=== PATIENT | female | born 1985 | race Caucasian/White ===

== ENCOUNTER 2020-06-03 16:14 | Outpatient (CLI) | payer OTHER, SELFPAY | END 2020-06-03 16:15 | disposition home or self-care (01) | LOC: ANHCOVIDVC 16:14 | PROVIDERS: PCP Family Medicine; Visit Provider Family Medicine | DX: Z23 Encounter for immunization (principal) | CPT/HCPCS: 0001A; 91300 ==

== ENCOUNTER 2020-06-24 16:15 | Outpatient (CLI) | payer OTHER, SELFPAY | END 2020-06-24 16:16 | disposition home or self-care (01) | LOC: ANHCOVIDVC 16:15 | PROVIDERS: PCP Family Medicine; Visit Provider Family Medicine | DX: Z23 Encounter for immunization (principal) | CPT/HCPCS: 0002A; 91300 ==

== ENCOUNTER → 2021-07-25 11:02 | Outpatient (CLI) | payer OTHER, SELFPAY ==
--- NOTE | ~2021-07-25 | XR_ITS ---
EXAMINATION: XR lumbar spine 2-3V DATE: 07/25/2021 11:47 INDICATION: Low back pain TECHNIQUE: Anteroposterior and lateral views of the lumbar spine, and cone-down lateral view of the l umbosacral junction were obtained. COMPARISON: None. FINDINGS: There is no fracture, dislocation, or subluxation. The vertebral body heights, alignment, a nd intervertebral disc spaces are normal. The paravertebral soft tissues are unremarkable. IMPRESSION: 1. No acute osseous abnormality. Reviewed, dictated and finalized at location B.
--- NOTE | ~2021-07-25 | XR_ITS ---
XR hip RT 2V w AP pelvis DATE: 07/25/2021 11:47 INDICATION: Right hip pain TECHNIQUE: AP pelvis. AP and lateral views of right hip. COMPARISON: None FINDINGS: No pelvic fracture or bone destruction. The pubic symphysis and sacroiliac joints are intac t. Hip joint spaces are symmetric and well preserved. No fracture or dislocation, avascular necrosis or bone destruction of the right hip. IMPRESSION: Negative Reviewed, dictated and finalized at location A. IMPRESSION: Negative
== END ==
PROVIDERS: PCP Family Medicine; Visit Provider Family Medicine
DX: R10.9 Unspecified abdominal pain (principal); M54.50 Low back pain, unspecified; M25.551 Pain in right hip
CPT/HCPCS: 72100; 73502

== ENCOUNTER 2025-02-02 11:34 | Outpatient (CLI) | payer OTHER, SELFPAY ==
--- NOTE | ~2025-02-02 | XR_ITS ---
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 TECHNIQUE: C-spine exam with flexion and extension FINDINGS: No fracture lucency or gross malalignment. Prevertebral soft tissues appear normal. Spur formation and/or spondylosis present along the anteroinferior margin of C5, extending toward C6. Milder degenerative appearing changes at levels above and below. On flexion and extension, no evidence of instability. IMPRESSION: 1. Mild multilevel degenerative changes with no evidence of instability. 2. Early developing bridging anterior spondylosis versus old fracture at C5-6. Reviewed, dictated and finalized at location A. [employer]
== END 2025-02-02 11:35 | disposition home or self-care (01) ==
LOC: GOSHIMG 11:36
PROVIDERS: PCP Family Medicine; Visit Provider Family Medicine
DX: M47.812 Spondylosis without myelopathy or radiculopathy, cervical region (principal); Z87.81 Personal history of (healed) traumatic fracture
CPT/HCPCS: 72052